=== PATIENT | female | born 1960 | race Two or more races ===

== ENCOUNTER → 2019-09-06 | Outpatient (CLI) | payer BC ==
[2019-09-06 12:20] LABS: Basophils # (auto) 0 10 ^3/uL (0-0.2); Basophils % (auto) 0.4 % (0.0-2.0); Eosinophils # (auto) 0.1 10 ^3/uL (0-0.8); Eosinophils % (auto) 1.3 % (0.0-7.0); Lymphocytes # (auto) 2.7 10 ^3/uL (0.4-5.4); Lymphocytes % (auto) 40.8 % (10.0-50.0); Mean Corpuscular Hemoglobin 27.6 pg (28.0-32.0); Mean Corpuscular Hgb Conc. 32.5 g/dL (32.0-36.0); Mean Corpuscular Volume 85.1 fL (80.0-100.0); Monocytes # (auto) 0.3 10 ^3/uL (0-1.3); Monocytes % (auto) 5.3 % (0.0-12.0); Neutrophils # (auto) 3.5 10 ^3/uL (1.6-8.6); Neutrophils % (auto) 52.2 % (37.0-80.0); Platelet Count (auto) 245 10^3/uL (140-450); Red Blood Cells 5.05 10^6/uL (4.0-5.20); Red Cell Distribution Width 14.4 % (11.8-14.3); White Blood Cell 6.6 10^3/uL (4.4-10.8)
[2019-09-06 12:41] LABS: Potassium 4.1 mmol/L (3.5-5.1)
[2019-09-06 13:09] LABS: Albumin 3.4 g/dL (3.4-5.0); BUN/Creatinine Ratio 18.9; Bilirubin, Total 1.1 mg/dL (0.2-1.0); Calcium 8.7 mg/dL (8.5-10.1); Total Protein 7.5 g/dL (6.4-8.2)
== END | disposition home or self-care (01) ==
LOC: LAB 10:57
PROVIDERS: ATTEND Internal Medicine Cardiovascular Disease
DX: Z00.00 Encounter for general adult medical examination without abnormal findings (principal); E66.3 Overweight; Z80.9 Family history of malignant neoplasm, unspecified
CPT/HCPCS: 36415; 80053; 80061; 85025

== ENCOUNTER → 2019-11-01 | Outpatient (CLI) | payer BC | END | disposition home or self-care (01) | LOC: Rad HDHVI 13:10 | PROVIDERS: ATTEND Internal Medicine Cardiovascular Disease | DX: I07.1 Rheumatic tricuspid insufficiency (principal); R06.02 Shortness of breath | CPT/HCPCS: 71046; 93306 ==

== ENCOUNTER → 2019-11-02 | Outpatient (CLI) | payer BC ==
[~2019-11-02] VITALS: Ht 162.6 cm; Wt 89.8 kg
== END | disposition home or self-care (01) ==
LOC: Rad HDHVI 08:06
PROVIDERS: ATTEND Internal Medicine Cardiovascular Disease
DX: I25.10 Atherosclerotic heart disease of native coronary artery without angina pectoris (principal); R06.02 Shortness of breath
CPT/HCPCS: 78452; 93017; 96374; A9500

== ENCOUNTER → 2020-02-20 | Outpatient (CLI) | payer OTHER | END | disposition home or self-care (01) | LOC: LAB 07:27 | PROVIDERS: ATTEND Nurse Practitioner Family | DX: U07.1 COVID-19 (principal) | CPT/HCPCS: C9803; U0003 ==

== ENCOUNTER → 2020-11-20 | Outpatient (CLI) | payer BC, OTHER ==
[2020-11-20 11:15] LABS: Basophils # (auto) 0 10 ^3/uL (0-0.2); Basophils % (auto) 0.6 % (0.0-2.0); Eosinophils # (auto) 0.1 10 ^3/uL (0-0.8); Eosinophils % (auto) 1.3 % (0.0-7.0); Hematocrit 43.4 % (36.0-46.0); Hemoglobin 14.4 g/dL (12.2-16.2); Lymphocytes # (auto) 2.2 10 ^3/uL (0.4-5.4); Lymphocytes % (auto) 38.4 % (10.0-50.0); Mean Corpuscular Hgb Conc. 33.3 g/dL (32.0-36.0); Mean Corpuscular Volume 84.1 fL (80.0-100.0); Monocytes # (auto) 0.3 10 ^3/uL (0-1.3); Monocytes % (auto) 5.5 % (0.0-12.0); Neutrophils # (auto) 3.1 10 ^3/uL (1.6-8.6); Neutrophils % (auto) 54.2 % (37.0-80.0); Red Blood Cells 5.16 10^6/uL (4.0-5.20); Red Cell Distribution Width 14.5 % (11.8-14.3); White Blood Cell 5.7 10^3/uL (4.4-10.8)
[2020-11-20 11:17] LABS: Urine Blood Negative /uL (Negative); Urine Specific Gravity 1.024 (1.001-1.035)
[2020-11-20 11:27] LABS: Albumin 3.3 g/dL (3.4-5.0); Calcium 9.3 mg/dL (8.5-10.1); Potassium 4.2 mmol/L (3.5-5.1)
[2020-11-20 11:32] LABS: BUN/Creatinine Ratio 21.2; Bilirubin, Direct 0.2 mg/dL (0-0.2); Total Protein 7.6 g/dL (6.4-8.2)
[2020-11-20 12:02] LABS: Follicle Stimulating Hormone 70.3 IU/L (SEE BELOW); Free T4 (Free Thyroxine) 1.03 ng/dL (0.89-1.76)
== END | disposition home or self-care (01) ==
LOC: LAB 10:31
PROVIDERS: ATTEND Internal Medicine Cardiovascular Disease
DX: Z00.00 Encounter for general adult medical examination without abnormal findings (principal); D51.3 Other dietary vitamin B12 deficiency anemia; I10 Essential (primary) hypertension; E11.9 Type 2 diabetes mellitus without complications; E55.9 Vitamin D deficiency, unspecified; D64.9 Anemia, unspecified; R00.2 Palpitations; R53.1 Weakness; R30.0 Dysuria
CPT/HCPCS: 36415; 80048; 80061; 80076; 81003; 82306; 82607; 82670; 82672; 83001; 83036; 84144; 84403; 84439; 84443; 85025

== ENCOUNTER → 2020-11-22 | Outpatient (CLI) | payer BC, OTHER | END | disposition home or self-care (01) | LOC: Rad HDHVI 14:37 | PROVIDERS: ATTEND Internal Medicine Cardiovascular Disease | DX: M47.817 Spondylosis without myelopathy or radiculopathy, lumbosacral region (principal); M51.37 Other intervertebral disc degeneration, lumbosacral region | CPT/HCPCS: 72100 ==

== ENCOUNTER → 2021-07-04 | Outpatient (CLI) | payer BC ==
[2021-07-04 11:53] LABS: Basophils # (auto) 0 10 ^3/uL (0-0.2); Basophils % (auto) 0.2 % (0.0-2.0); Eosinophils # (auto) 0.1 10 ^3/uL (0-0.8); Eosinophils % (auto) 2.1 % (0.0-7.0); Hematocrit 43.1 % (36.0-46.0); Hemoglobin 14.4 g/dL (12.2-16.2); Lymphocytes # (auto) 2.2 10 ^3/uL (0.4-5.4); Lymphocytes % (auto) 35.6 % (10.0-50.0); Mean Corpuscular Hemoglobin 27.9 pg (28.0-32.0); Mean Corpuscular Hgb Conc. 33.4 g/dL (32.0-36.0); Mean Corpuscular Volume 83.5 fL (80.0-100.0); Monocytes # (auto) 0.4 10 ^3/uL (0-1.3); Monocytes % (auto) 6.1 % (0.0-12.0); Neutrophils # (auto) 3.5 10 ^3/uL (1.6-8.6); Nucleated Red Blood Cells % 0.1 %; Red Blood Cells 5.16 10^6/uL (4.0-5.20); Red Cell Distribution Width 14.1 % (11.8-14.3); White Blood Cell 6.2 10^3/uL (4.4-10.8)
[2021-07-04 12:08] LABS: Potassium 4.1 mmol/L (3.5-5.1)
[2021-07-04 12:15] LABS: Albumin 3.3 g/dL (3.4-5.0); BUN/Creatinine Ratio 19.2; Bilirubin, Total 0.8 mg/dL (0.2-1.0); Calcium 8.9 mg/dL (8.5-10.1); Total Protein 7.4 g/dL (6.4-8.2)
== END | disposition home or self-care (01) ==
LOC: LAB 08:17
PROVIDERS: ATTEND Internal Medicine Cardiovascular Disease
DX: Z00.00 Encounter for general adult medical examination without abnormal findings (principal); E55.9 Vitamin D deficiency, unspecified; R73.03 Prediabetes; R79.89 Other specified abnormal findings of blood chemistry
CPT/HCPCS: 36415; 80053; 80061; 82043; 82306; 83036; 84439; 84443; 85025

== ENCOUNTER 2022-07-01 08:07 | Day surgery (SDC) | payer BC ==
[2022-05-29 14:19] LABS: Basophils # (auto) 0 10 ^3/uL (0-0.2); Basophils % (auto) 0.4 % (0.0-2.0); Eosinophils # (auto) 0.1 10 ^3/uL (0-0.8); Eosinophils % (auto) 1.8 % (0.0-7.0); Hematocrit 43.4 % (36.0-46.0); Hemoglobin 14.6 g/dL (12.2-16.2); Lymphocytes # (auto) 2.7 10 ^3/uL (0.4-5.4); Lymphocytes % (auto) 37.6 % (10.0-50.0); Mean Corpuscular Hemoglobin 28.1 pg (28.0-32.0); Mean Corpuscular Hgb Conc. 33.5 g/dL (32.0-36.0); Mean Corpuscular Volume 83.9 fL (80.0-100.0); Monocytes # (auto) 0.4 10 ^3/uL (0-1.3); Monocytes % (auto) 5.2 % (0.0-12.0); Neutrophils # (auto) 3.9 10 ^3/uL (1.6-8.6); Nucleated Red Blood Cells % 0.1 %; Red Blood Cells 5.18 10^6/uL (4.0-5.20); Red Cell Distribution Width 14.3 % (11.8-14.3); White Blood Cell 7.1 10^3/uL (4.4-10.8)
[2022-05-29 14:31] LABS: Urine Bacteria NONE SEEN /hpf (None Seen); Urine Blood Negative /uL (Negative); Urine Hyaline Cast FEW /lpf (0 - 2); Urine Mucus FEW (None Seen); Urine Specific Gravity 1.025 (1.001-1.035); Urine WBC 1 /hpf (0 - 5)
[2022-05-29 14:36] LABS: INR 1.01 (0.9-1.15); Partial Thromboplastin Time 30.1 sec (24.6-33.4)
[2022-05-29 15:04] LABS: Albumin 3.8 g/dL (3.4-5.0); BUN/Creatinine Ratio 17.6; Calcium 8.9 mg/dL (8.5-10.1); Potassium 3.7 mmol/L (3.5-5.1); Total Protein 7.4 g/dL (6.4-8.2)
[2022-06-29 15:00] LABS: Basophils # (auto) 0.1 10 ^3/uL (0-0.2); Basophils % (auto) 0.7 % (0.0-2.0); Eosinophils # (auto) 0.2 10 ^3/uL (0-0.8); Eosinophils % (auto) 2.1 % (0.0-7.0); Hemoglobin 14.5 g/dL (12.2-16.2); Lymphocytes # (auto) 2.5 10 ^3/uL (0.4-5.4); Mean Corpuscular Hemoglobin 27.3 pg (28.0-32.0); Mean Corpuscular Hgb Conc. 32.3 g/dL (32.0-36.0); Mean Corpuscular Volume 84.5 fL (80.0-100.0); Monocytes # (auto) 0.5 10 ^3/uL (0-1.3); Monocytes % (auto) 6.4 % (0.0-12.0); Neutrophils # (auto) 4.5 10 ^3/uL (1.6-8.6); Neutrophils % (auto) 58.8 % (37.0-80.0); Nucleated Red Blood Cells % 0.1 %; Red Blood Cells 5.32 10^6/uL (4.0-5.20); Red Cell Distribution Width 14.8 % (11.8-14.3); White Blood Cell 7.7 10^3/uL (4.4-10.8)
[2022-06-29 15:21] LABS: INR 0.97 (0.9-1.15); Partial Thromboplastin Time 28.8 sec (24.6-33.4)
[2022-06-29 15:34] LABS: Urine Bacteria FEW /hpf (None Seen); Urine Blood Negative /uL (Negative); Urine Hyaline Cast FEW /lpf (0 - 2); Urine Mucus FEW (None Seen); Urine Specific Gravity 1.025 (1.001-1.035); Urine WBC 1 /hpf (0 - 5)
[2022-06-29 15:53] LABS: Albumin 3.4 g/dL (3.4-5.0); Potassium 3.9 mmol/L (3.5-5.1)
[2022-06-29 15:58] LABS: Bilirubin, Total 1.1 mg/dL (0.2-1.0); Total Protein 7.2 g/dL (6.4-8.2)
[~2022-07-01] VITALS: Ht 162.6 cm; Wt 88.9 kg
[~2022-07-01 08:07] MED LIST: SEMA0.5I SC
[2022-07-01] MEDS ORDERED: ceFAZolin 1GM/50ML 100 ML IV ONE (08:38)
[2022-07-01] MEDS ORDERED: MIDAZOLAM HCL 2MG/2ML 2ml VIAL (1mg/ml) ONE (09:04)
[2022-07-01] MEDS ORDERED: ONDANSETRON HCL 4 MG/2 ML VIAL ONE (09:04)
[2022-07-01] MEDS ORDERED: PROPOFOL 10 MG/ML 20 ML IV ONE (09:04)
[2022-07-01] MEDS ORDERED: SODIUM CHLORIDE LOCK 10 ML ONE (09:04)
[2022-07-01] MEDS ORDERED: fentaNYL CITRATE 100 MCG/2 ML VL ONE (09:04)
[2022-07-01] MEDS ORDERED: METOCLOPRAMIDE HCL 5MG/ml INJ 2ml VIAL IV PRN (09:30)
[2022-07-01] MEDS ORDERED: MORPHINE SULFATE INJ 2 MG/ml SYRG IV PRN (09:30)
[2022-07-01] MEDS ORDERED: HYDROmorphone HCL 2 MG/ML VL/or syr IV PRN ×2 (09:30)
[2022-07-01 12:35] VITALS: BP 117/52
== END 2022-07-01 12:50 | disposition home or self-care (01) ==
LOC: SUR 08:07
PROVIDERS: ATTEND Podiatrist
DX: M20.42 Other hammer toe(s) (acquired), left foot (principal); M20.12 Hallux valgus (acquired), left foot; Z20.822 Contact with and (suspected) exposure to COVID-19; Z98.890 Other specified postprocedural states
CPT/HCPCS: 28285; 28298; 36415; 73620; 76000; 80053; 81001; 85025; 85610; 85730; J0690; J2250; J2405; J2704; J3010; U0003

== ENCOUNTER → 2024-02-17 | Outpatient (CLI) | payer BC, MEDICAID ==
--- NOTE | 2024-02-17 09:21 | DVHSR ---
APPROVED REPORT EXAM: Two-dimensional and M-mode echocardiogram with Doppler and color Doppler. INDICATION Chest Pain RISK FACTORS Height: 64, Weight: 200 DIMENSIONS LVDd5.2 (3.8-5.7cm)LA (2D)4.2 (1.9-4.0cm)Aortic Root3.2 (2.0-3.7cm) LVDs3.9 (2.5-4.0cm)LA (MM) (1.9-4.0cm)Aortic Cusp Exc1.8 (1.5-2.0cm) EF (%) 50.0 (55-70%)Rt. Atrium4.4 (1.9-4.0cm)Asc. Aorta cm Mitral Valve MitralMitral Stenosis E wave0.60m/sMV Mean GR.mmHg A wave1.00m/sMV Peak GR.mmHg E/A ratio0.62D MVAcm2 DECEL [id number] 1/2 [id number] IVRTmsDop MVA3.65cm2 Aortic Valve Aortic ValveAortic Stenosis V10.88m/Asmita Mean GR.3mmHg V21.22m/Asmita Peak GR.6mmHg LVOT Diameter2.0 (1.8-2.4cm)Doppler AVA2.26cm2 Pulmonic Valve V20.81m/s Other Information Technically limited study due to body habitus. Conclusion Mildly reduced left ventricular systolic function in global fashion estimated ejection fraction 45%. There is a grade diastolic dysfunction. Normal right ventricular size and dimension. Normal right ventricular systolic function. Normal biatrial size and dimension. Normal aortic valve structure and function. Normal mitral valve structure and function. Normal tricuspid valve structure and function. The pulmonary valve is grossly normal. No pericardial effusion.
== END | disposition home or self-care (01) ==
LOC: EEVIPCON → XYW 07:55
PROVIDERS: ATTEND Nurse Practitioner Family
DX: R06.02 Shortness of breath (principal); R42 Dizziness and giddiness; R07.9 Chest pain, unspecified
CPT/HCPCS: 93306

== ENCOUNTER → 2024-06-13 | Outpatient (CLI) | payer MEDICAID ==
[~2024-06-13] VITALS: Ht 162.6 cm; Wt 92.5 kg
--- NOTE | 2024-06-16 14:58 | DVHSR ---
APPROVED REPORT Exam: Nuclear Stress Test Indication: Chest pain Ht: 5 ft 4 in Wt: 204 lbs BSA: 1.97 m2 HR: 63 bpm BP: 111/75 mmHg BMI: 35.01 Rhythm: NSR Medical History Medical History: Chest pain Allergies: No known drug allergies Cardiac Risk Factors: Family Hx of CAD Stress Test Details Stress Test: Exercise stress testing was performed using a Benny protocol. HR Resting HR: 63 bpmMax Heart Rate (APMHR): 159.231269 bpm Max HR Achieved: 151 bpmTarget HR (85% APMHR): 135.884768 bpm % of APMHR: 94.97 Recovery HR: 84 bpm HR response to stress: Accelerated BP Resting BP: 111/75 mmHg Max BP: 187/62 mmHg Recovery BP: 132/68 mmHg BP response to stress: Exaggerated response ECG Resting ECG: Sinus Rhythm Stress ECG: Sinus Tachycardia Arrhythmia: PVCs, PACs Recovery ECG: Sinus Rhythm Clinical Reason for Termination: Dyspnea, Target HR achieved Stress Symptoms: Dyspnea Exercise duration: 4 min 25 sec Exercise capacity: 7.0 METs SOB (89-91% R/A peak exercise); improved during recovery, 96% R/A resting. Stress ECG Conclusion NON ISCHEMIC CLINICAL RESPONSE NON ISCHEMIC ECG RESPONSE NO REVERSIBLE DEFECTS CARDIOLITE STRESS IMAGING EF >50% NM EXAM: Myocardial Perfusion REST/STRESS Imaging Protocol: Rest Tc-99m/Stress Tc-99m 1 day Resting Data Rest SPECT myocardial perfusion imaging was performed in supine position 30 minutes following the int ravenous injection of 9.75 mCi of Tc-99m Sestamibi. Time of rest injection: 1008 Time of rest imagin Administration Route: IV Administration Site: Left AC Exercise Stress At peak stress, the patient was injected intravenously with 31.9 mCi of Tc-99m Sestamibi. Time of stress injection: 1103 Time of stress imagin Administration Route: IV Administration Site: Left AC Heart Rate at time of stress injection: 151 bpm. Patient continued to exercise for 1 minute(s). Gated Stress SPECT was performed 15 minutes after stress injection. The images were gated to evaluate regional wall motion and calculate left ventricular ejection fracti on. Comments Cardiolite injection at 3 minutes, 10 seconds into test. Study Data Post stress, the left ventricular ejection was 46%.. Nuclear Conclusion NON ISCHEMIC CLINICAL RESPONSE NON ISCHEMIC ECG RESPONSE NO REVERSIBLE DEFECTS CARDIOLITE STRESS IMAGING EF >50%
== END | disposition home or self-care (01) ==
LOC: Rad HDHVI 10:45
PROVIDERS: ATTEND Internal Medicine Cardiovascular Disease
DX: R00.0 Tachycardia, unspecified (principal); R07.9 Chest pain, unspecified; R06.00 Dyspnea, unspecified
CPT/HCPCS: 78452; 93017; A9500; 96374

== ENCOUNTER → 2024-06-14 | Outpatient (CLI) | payer MEDICAID ==
--- NOTE | 2024-06-16 13:46 | DVHSR ---
APPROVED REPORT EXAM: Two-dimensional and M-mode echocardiogram with Doppler and color Doppler. DIMENSIONS LVDd4.4 (3.8-5.7cm)LA (2D)3.8 (1.9-4.0cm)Aortic Root3.2 (2.0-3.7cm) LVDs3.3 (2.5-4.0cm)LA (MM) (1.9-4.0cm)Aortic Cusp Exc1.9 (1.5-2.0cm) EF (%) 50.0 (55-70%)Rt. Atrium3.7 (1.9-4.0cm)Asc. Aorta cm IVSd0.9 (0.7-1.1cm)RV (D) (1.8-2.4cm) PWd1.0 (0.7-1.1cm) Mitral Valve MitralMitral Stenosis E wave0.56m/sMV Mean GR.mmHg A wave0.73m/sMV Peak GR.mmHg E/A ratio0.82D MVAcm2 DECEL [id number] 1/2 Timems Aortic Valve Aortic ValveAortic Stenosis V10.80m/Asmita Mean GR.3mmHg V21.13m/Asmita Peak GR.5mmHg LVOT Diameter2.2 (1.8-2.4cm)Doppler AVA2.69cm2 Pulmonic Valve V20.95m/s LEFT VENTRICLE The left ventricle is normal size. The left ventricle is normal in structure and function. The Ejection Fraction is 45-50%. RIGHT VENTRICLE The right ventricle is normal size. ATRIA The left atrial size is normal. The right atrium size is normal. The interatrial septum is intact with no evidence for an atrial septal defect. MITRAL VALVE The mitral valve is normal in structure. Mitral regurgitation is trace. PULMONIC VALVE The pulmonic valve is not well visualized. TRICUSPID VALVE The tricuspid valve is grossly normal. AORTIC VALVE The aortic valve opens well. No aortic regurgitation is present. GREAT VESSELS The aortic root is normal size. PERICARDIAL EFFUSION There is no pericardial effusion. Other Information Technically limited study due to body habitus. Conclusion EF 50-55%
== END | disposition home or self-care (01) ==
LOC: Rad HDHVI 08:03
PROVIDERS: ATTEND Internal Medicine Cardiovascular Disease
DX: R06.02 Shortness of breath (principal)
CPT/HCPCS: 93306

== ENCOUNTER → 2024-10-04 | Outpatient (CLI) | payer MEDICAID ==
[~2024-10-04] VITALS: Ht 30.5 cm; Wt 0.5 kg
[~2024-10-04] MED LIST changes: +KETOROLAC TROMETH 30 MG/ML 1ML VIAL IV ONE; +ONDANSETRON HCL 4 MG/2 ML VIAL IV ONE; +TRAM-626 PO; +ZOFR4T PO
[2024-10-04 10:30] VITALS: BP 145/58; PULSE 61; RESP 20; O2SAT 96
[2024-10-04] MEDS: KETOROLAC TROMETH 60MG/2ML VIAL IM ONE (10:45)
[2024-10-04] MEDS: SODIUM CHLORIDE 0.9% 1,000 ML IV ONE (10:48)
[2024-10-04] MEDS: ONDANSETRON HCL 4 MG/2 ML VIAL ONE ×2 (11:14→12:44)
[2024-10-04] MEDS: KETOROLAC TROMETH 60MG/2ML VIAL ONE (11:14)
[2024-10-04] MEDS: PANTOPRAZOLE 40 MG TAB PO ONE ×2 (11:54→11:55)
--- NOTE | 2024-10-04 13:00 | DVH ---
Exam: XY KUB ABDOMEN SINGLE VIEW Indication: ABD PAIN Comparison: None Technique: 2 radiographic views of the abdomen. Findings: Moderate colonic stool. Nonobstructive bowel gas pattern noted. There is no definite evidence for pneumoperitoneum. No abnormal calcifications noted. Impression: Moderate colonic stool.
[2024-10-04] MEDS: ONDANSETRON HCL 4 MG/2 ML VIAL IV ONE (14:05)
[2024-10-04 14:12] VITALS: BP 150/69; PULSE 64; RESP 16; O2SAT 96
== END | disposition home or self-care (01) ==
LOC: CHF HDHVI 10:39
PROVIDERS: ATTEND Internal Medicine Cardiovascular Disease
DX: K29.70 Gastritis, unspecified, without bleeding (principal); E86.0 Dehydration; R11.0 Nausea; R10.9 Unspecified abdominal pain
CPT/HCPCS: 74018; 96361; 96365; 96372; 96375; G0463; J1885; J1956; J2405; J7030; 96360; 96367

== ENCOUNTER 2024-10-05 21:27 | Inpatient (IN) | payer MEDICAID ==
[~2024-10-05] VITALS: Ht 162.6 cm; Wt 93.1 kg
[~2024-10-05 21:27] MED LIST changes: -KETOROLAC TROMETH 30 MG/ML 1ML VIAL IV ONE; -ONDANSETRON HCL 4 MG/2 ML VIAL IV ONE; -TRAM-626 PO; -ZOFR4T PO
--- NOTE | 2024-10-05 22:22 | ED.PDOC ---
GI ASSESSMENT HPI Comments 63-year-old female with a history of cholecystectomy brought in by self complaining of upper abdominal pain for the last 5 days. Patient reports upper abdominal pain radiating to the back, severe, associated with nausea, vomiting and decreased p.o. intake. Patient states her last bowel movement was 5 days ago. Patient states she was seen by her PCP 2 days ago, was diagnosed with a "stomach infection" and gastritis and was started on levofloxacin, esomeprazole and tramadol. Patient reports no improvement in her symptoms. Chief Complaint: Abdominal Pain Time Seen by MD: 22:20 Reviewed Notes: Nurses Notes Allergies: Coded Allergies: No Known Drug Allergy (Verified Allergy, Unknown, 11/02/19) Home Meds Reported Medications Semaglutide (Wegovy) 0.5 Mg/0.5 Ml Inj, 0.5 MG SC QWEEKLY, INJ 05/29/22 Information Source: Patient Mode of Arrival: Ambulatory Timing: Days Duration: Intermittent Prehospital treatment: None Quality: Burning Vomitus: Watery Stool: Impaction Severity: Moderate Recent: None Recent Hx of: Abdominal Surgery Pain Location: RUQ, LUQ Modifying Factors: Nothing Associated sign and symptoms: Nausea, Vomiting, Constipation, Abdominal Pain, Other (Back pain) Past Medical History PAST MEDICAL HISTORY: Denies Surgical History: Cholecystectomy [employer]ANCE [employer]ENT History: Denies all [employer]URANCE [employer]ENT Hx Family History Family History: Reviewed,noncontributory to illness Social History Smoker: Non-Smoker Alcohol: Denies ETOH Use Drugs: Denies Drug Use Lives In: Home Constitutional: denies: chills, diaphoresis, fatigue, fever, malaise, sweats, weakness, others EENTM: denies: blurred vision, double vision, ear bleeding, ear discharge, ear drainage, ear pain, ear ringing, eye pain, eye redness, hearing loss, mouth pain, mouth swelling, nasal discharge, nose bleeding, nose congestion, nose pain, photophobia, tearing, throat pain, throat swelling, voice changes, others Respiratory: denies: cough, hemoptysis, orthopnea, SOB at rest, shortness of breath, SOB with excertion, stridor, wheezing, others Cardiovascular: denies: chest pain, dizzy spells, diaphoresis, Dyspnea on exertion, edema, irregular heart beat, left arm pain, lightheadedness, palpitations, PND, syncope, others Gastrointestinal: reports: abdominal pain, constipated, nausea, vomiting; denies: abdomen distended, blood streaked bowels, diarrhea, dysphagia, difficulty swallowing, hematemesis, melena, poor appetite, poor fluid intake, rectal bleeding, rectal pain, others Genitourinary: denies: abnormal vagina bleeding, burning, dyspareunia, dysuria, flank pain, frequency, hematuria, incontinence, pain, , vagina discharge, urgency, others Neurological: denies: dizziness, fainting, headache, left sided numbness, left sided weakness, numbness, paresthesia, pre-existing deficit, right sided numbness, right sided weakness, seizure, speech problems, tingling, tremors, weakness, others Musculoskeletal: reports: back pain; denies: gout, joint pain, joint swelling, muscle pain, muscle stiffness, neck pain, others Integumetry: denies: bruises, change in color, change in hair/nails, dryness, laceration, lesions, lumps, rash, wounds, others Allergic/Immunocompromised: denies: Difficulty Healing, Frequent Infections, Hives, Itching, others Hematologic/Lymphatic: denies: anemia, blood clots, easy bleeding, easy bruising, swollen glands, others Endocrine: denies: excessive hunger, excessive sweating, excessive thirst, excessive urination, flushing, intolerance to cold, intolerance to heat, unexplained weight gain, unexplained weight loss, others Psychiatric: denies: anxiety, bipolar disorder, depression, hopeless, panic disorder, schizophrenia, sleepless, suicidal, others Physical Exam General Appearance: Mild Distress HEENT: Other (Pupils and face symmetric. Moist mucous membranes.) Neck: Full Range of Motion, Normal Inspection Respiratory: Lungs Clear, No Accessory Muscle Use, No Respiratory Distress, Normal Breath Sounds Cardiovascular: No Edema, No JVD, Regular Rate/Rhythm Breast Exam: Deferred Gastrointestinal: Epigastric, LUQ, RUQ, Tenderness Genitalia: Deferred Pelvic: Deferred Rectal: Deferred Extremities: Normal inspection, Normal range of motion, Non-tender, No pedal edema Neurologic: Alert (Oriented x4), Normal Affect, Normal Mood, Other (Ambulatory) Cerebellar Function: NOT DONE Reflexes: NOT DONE Skin: Dry, Normal Color, Warm Lymphatic: NOT DONE Was a procedure done? Was a procedure done?: No GI differential Dx Differential Diagnosis: Constipation, Gastritis/PUD, Gastroenteritis, Inflam matory BD, Pancreatitis, UTI, Dehydration, Diabetes/ DKA, Electrolyte Imbalance, Food Poisoning, Bacterial, Viral, Hypovolemia, Impaction, Stress Ulcer X-Ray, Labs, Meds, VS Vital Signs Date Time Temp Pulse Resp B/P (MAP) Pulse Ox O2 Delivery O2 Flow Rate FiO2 10/06/24 00:01 98.3 85 14 120/60 (80) 96 98.3 10/05/24 22:13 98.5 82 20 133/70 (91) 98 98.5 Lab Test 10/06/24 01:05 10/06/24 00:09 10/05/24 22:25 10/05/24 22:01 Range/Units Troponin I High Sensitivity Pending 6 7 </=34 ng/L White Blood Count 9.3 4.4-10.8 10^3/uL Red Blood Count 5.68 H 4.0-5.20 10^6/uL Hemoglobin 16.0 12.2-16.2 g/dL Hematocrit 47.1 H 36.0-46.0 % Mean Corpuscular Volume 82.9 80.0-100.0 fL Mean Corpuscular Hemoglobin 28.1 28.0-32.0 pg Mean Corpuscular Hemoglobin Concent 33.9 32.0-36.0 g/dL Red Cell Distribution Width 14.1 11.8-14.3 % Platelet Count 258 140-450 10^3/uL Mean Platelet Volume 8.1 6.9-10.8 fL Neutrophils (%) (Auto) 69.7 37.0-80.0 % Lymphocytes (%) (Auto) 21.0 10.0-50.0 % Monocytes (%) (Auto) 8.4 0.0-12.0 % Eosinophils (%) (Auto) 0.5 0.0-7.0 % Basophils (%) (Auto) 0.4 0.0-2.0 % Neutrophils # (Auto) 6.5 1.6-8.6 10 ^3/uL Lymphocytes # (Auto) 1.9 0.4-5.4 10 ^3/uL Monocytes # (Auto) 0.8 0-1.3 10 ^3/uL Eosinophils # (Auto) 0 0-0.8 10 ^3/uL Basophils # (Auto) 0 0-0.2 10 ^3/uL Nucleated Red Blood Cells 0.1 % Sodium Level 132 L 136-145 mmol/L Potassium Level 3.6 3.5-5.1 mmol/L Chloride Level 96 L 98-107 mmol/L Carbon Dioxide Level 28 20-31 mmol/L Anion Gap 8 5-15 Blood Urea Nitrogen 13 9-23 mg/dL Creatinine 0.85 0.550-1.02 mg/dL Glomerular Filtration Rate Calc 78 >90 mL/min BUN/Creatinine Ratio 15.3 10.0-20.0 Serum Glucose 127 H 74-106 mg/dL Calcium Level 9.6 8.7-10.4 mg/dL Total Bilirubin 1.7 H 0.2-1.0 mg/dL Aspartate Amino Transferase (AST) 20 13-40 U/L Alanine Aminotransferase (ALT) 19 7-40 U/L Alkaline Phosphatase 102 46-116 U/L Total Protein 7.8 5.7-8.2 g/dL Albumin 4.7 3.2-4.8 g/dL Lipase 39 12-53 U/L Urine Color Yellow Yellow Urine Clarity Clear Clear Urine pH 6.5 5.0-9.0 Urine Specific [place] 1.026 1.001-1.035 Urine Protein Trace H Negative Urine Ketones 1+ H Negative Urine Blood Trace H Negative /uL Urine Nitrite Negative Negative Urine Bilirubin Negative Negative Urine Urobilinogen Normal Negative mg/dL Urine Leukocyte Esterase Trace Negative /uL Urine RBC 5 0 - 4 /hpf Urine Microscopic WBC 5 0-5 /HPF Urine Squamous Epithelial Cells Few <5 /hpf Urine Bacteria None seen None Seen /hpf Urine Mucus Few None Seen Urine Glucose Normal Normal mg/dL PROCEDURE(s): ABPL - CT AB PEL WO CON-NO ORAL OR IV REASON: epig and luq pain ORDER NUMBER(s): [id number], ACCESSION NUMBER(s): [id number] CLINICAL HISTORY: epig and luq pain TECHNIQUE: CT of the abdomen and pelvis was performed without intravenous contrast. This exam was performed according to our departmental dose optimization program. Up-to-date CT equipment and radiation dose reduction techniques are utilized as appropriate. CTDI: 17.33 DLP: 1043.08 WID: COMPARISON: None FINDINGS: Lower Thorax: Unremarkable. Liver and Biliary system: Normal-sized liver. tiny hypodensities in the right lobe of the liver not optimally evaluated without contrast. Gallbladder surgically absent. No biliary ductal dilatation. Spleen: Unremarkable. Adrenal Glands and Kidneys: Unremarkable. Pancreas and Retroperitoneum: Unremarkable. Aorta and Major Vessels: Aortoiliac vessels are normal in caliber with mild calcified atherosclerotic plaque. Bowel, Mesentery and Peritoneal space: Normal caliber small and large bowel. There is mild colonic diverticulosis. Normal appendix. There is no free air or fluid collection. Pelvis: Unremarkable. Abdominal wall and Osseous Structures: Small fat containing umbilical hernia. Mild multilevel lower thoracic and lumbar spondylosis. No destructive osseous lesion. IMPRESSION: No noncontrast evidence of acute abnormality. Mild distal colonic diverticulosis. X-Ray, Labs, Meds, VS Comment 63-year-old female with a history of cholecystectomy complaining of upper abdominal pain despite taking oral antibiotics, tramadol and as omeprazole. Vitals unremarkable Exam remarkable for epigastric and left greater than right upper quadrant tenderness to palpation Rhythm strip independently interpreted by me: Sinus rhythm, rate 82, no ectopy. CT abdomen and pelvis: IMPRESSION: No noncontrast evidence of acute abnormality. Mild distal colonic diverticulosis. CBC unremarkable, CMP remarkable for sodium 132, chloride 96, total bili 1.7, li pase normal, 2 troponins negative, UA positive for blood, ketones, protein, leukocyte esterase, WBCs and RBCs, possibly indicating a partially treated urinary tract infection (patient is on Levaquin for the last 2 days) Patient treated with the following in the ED: 1 L 0.9 normal saline IV bolus, morphine 4 mg IV, Zofran 4 mg IV, Protonix 40 mg IV, Rocephin 1 g IV On re-evaluation, patient states pain has improved. Vitals are stable. Plan is to admit the patient for GI evaluation and IV antibiotics to cover possible partially treated UTI. Time of 1ST Reevaluation: 22:14 Reevaluation 1ST: Unchanged Patient Education/Counseling: Diagnosis, Treatment Family Education/Counseling: No Family Present SEPSIS Sepsis Screen Physician Orders Ct Ab Pel Wo Con-No Oral Or Iv (10/05/24 22:15) Electrocardigram (10/05/24 22:15) Troponin-I Hs (10/06/24 01:15) Vital Signs Date Time Temp Pulse Resp B/P (MAP) Pulse Ox O2 Delivery O2 Flow Rate FiO2 10/06/24 00:01 98.3 85 14 120/60 (80) 96 98.3 10/05/24 22:13 98.5 82 20 133/70 (91) 98 98.5 Laboratory Tests Test 10/05/24 22:25 White Blood Count 9.3 10^3/uL (4.4-10.8) Departure 1 Departure Time of Disposition: 01:34 Impression: Primary Impression: Abdominal pain Additional Impression: UTI (urinary tract infection) Disposition: 09 ADMITTED INPATIENT Admit to: Med Surg Condition: Guarded Critical Care Note Critical Care Time?: No Stability Stability form required: No Heart Score Heart Score: Heart Score Response (Comments) Value History N/A 0 EKG N/A 0 Age N/A 0 Risk Factors N/A 0 Troponin N/A 0 Total 0 I personally scribed for LIBRADO MARK MD (RIOSAMSON) on 10/05/24 at 22:22. Electronically submitted by Dre Orourke ([facility]). I personally scribed for LIBRADO MARK MD (RIOSAMSON) on 10/06/24 at 00:27. Electronically submitted by Dre Orourke ([facility]). I personally scribed for LIBRADO MARK MD (RIOSAMSON) on 10/06/24 at 01:10. Electronically submitted by Dre Orourke ([facility]). LIBRADO MARK MD Oct 05, 2024 22:22
[2024-10-05 22:38] LABS: Hematocrit 47.1 % (36.0-46.0); Hemoglobin 16.0 g/dL (12.2-16.2); Mean Corpuscular Hemoglobin 28.1 pg (28.0-32.0); Mean Corpuscular Volume 82.9 fL (80.0-100.0); Nucleated Red Blood Cells % 0.1 %
[2024-10-05 22:56] LABS: Alanine Aminotransferase 19 U/L (7-40); Albumin 4.7 g/dL (3.2-4.8); Alkaline Phosphatase 102 U/L (46-116); Anion Gap 8 (5-15); BUN/Creatinine Ratio 15.3 (10.0-20.0); Blood Urea Nitrogen 13 mg/dL (9-23); Calcium 9.6 mg/dL (8.7-10.4); Carbon Dioxide 28 mmol/L (20-31); Lipase 39 U/L (12-53); Potassium 3.6 mmol/L (3.5-5.1); Total Protein 7.8 g/dL (5.7-8.2)
[2024-10-05 23:03] LABS: Bilirubin, Total 1.7 mg/dL (0.2-1.0); Chloride 96 mmol/L (98-107); Glucose 127 mg/dL (74-106); Sodium 132 mmol/L (136-145)
[2024-10-05 23:07] LABS: Urine Protein, UAD TRACE (Negative)
[2024-10-06] VITALS (11 sets, daily range): BP systolic 107–129; BP diastolic 62–83; PULSE 59–89; RESP 12–20; TEMP 97.4–98.4; O2SAT 93–97
--- NOTE | 2024-10-06 00:15 | DVH ---
CLINICAL HISTORY: epig and luq pain TECHNIQUE: CT of the abdomen and pelvis was performed without intravenous contrast. This exam was per formed according to our departmental dose optimization program. Up-to-date CT equipment and radiation dose reduction techniques are utilized as appropriate. CTDI: 17.33 DLP: 1043.08 WID: COMPARISON: None FINDINGS: Lower Thorax: Unremarkable. Liver and Biliary system: Normal-sized liver. tiny hypodensities in the right lobe of the liver not optimally evaluated without contrast. Gallbladder surgically absent. No biliary ductal dilatation. Spleen: Unremarkable. Adrenal Glands and Kidneys: Unremarkable. Pancreas and Retroperitoneum: Unremarkable. Aorta and Major Vessels: Aortoiliac vessels are normal in caliber with mild calcified atherosclerotic plaque. Bowel, Mesentery and Peritoneal space: Normal caliber small and large bowel. There is mild colonic di verticulosis. Normal appendix. There is no free air or fluid collection. Pelvis: Unremarkable. Abdominal wall and Osseous Structures: Small fat containing umbilical hernia. Mild multilevel lower t horacic and lumbar spondylosis. No destructive osseous lesion. IMPRESSION: No noncontrast evidence of acute abnormality. Mild distal colonic diverticulosis.
[2024-10-06] MEDS ORDERED: ONDANSETRON HCL 4 MG/2 ML VIAL IV PRN (01:45)
[2024-10-06] MEDS ORDERED: ACETAMINOPHEN 325 MG TAB PO PRN (01:45)
--- NOTE | 2024-10-06 02:27 | DVHHP2 ---
History of Present Illness Reason for Visit: Abdominal pain History of Present Illness The patient is a 63-year-old female with past medical of cholecystitis who presented to [facility] ED with complaint of upper abdominal pain for the past 5 days. Patient reports she has been experiencing upper abdominal pain, radiating to her back, severe in nature, associated with nausea, vomiting, poor appetite, constipation, getting worse today that prompted this visit. Patient was seen and evaluated in the ED, laboratory data shows WBC 9.3, platelets 258, sodium 132, potassium 3.6, BUN 13, creatinine 0.85, glucose 127, calcium 9.6, lipase 39, total bilirubin 1.7, troponin 7, blood pressure 120/60, heart rate 85, temperature 98.3 F, O2 saturation 96% on room air. Abdomen/pelvis CT showed mild distal colonic diverticulosis, no evidence of acute abnormality. Please see medication orders section in the computer. On my assessment, patient denied chest pain, no headache, no dizziness, no diaphoresis, no shortness of breaths, no nausea, no vomiting at this moment, no fever, no chills. Patient was admitted for further evaluation and medical management. Past Medical History Cholecystitis Past Surgical History Cholecystectomy Family History Reviewed, noncontributory to the management of this case. Past Social History The patient lives at home, denies smoking, alcohol or illicit drugs abuse. Review of Systems Constitutional: No: Fever, Chills, Sweats, Weakness, Malaise, Other Eyes: No: Pain, Vision change, Conjunctivae inflammation, Eyelid inflammation, Other, Redness ENT: No: Ear pain, Ear discharge, Nose pain, Nose discharge, Nose congestion, Mouth pain, Mouth swelling, Throat pain, Throat swelling, Other Respiratory: No: Cough, Dry, Shortness of breath, SOB with excertion, Wheezing, Hemoptysis, Pleuritic Pain, Sputum, Wheezing, Other Cardiovascular: No: Chest Pain, Palpitations, Orthopnea, Paroxysmal Noc. Dyspnea, Edema, Lt Headedness, Other Gastrointestinal: Nausea, Vomiting, Abdominal Pain, Constipation; No: Diarrhea, Melena, Hematochezia, Other Genitourinary: No Dysuria, No Frequency, No Incontinence, No Hematuria, No Retention, No Other Musculoskeletal: back pain; No: other, neck pain, shoulder pain, arm pain, hand pain, leg pain, foot pain Skin: No: Rash, Lesions, Jaundice, Bruising, Other Neurological: No: Weakness, Numbness, Incoordination, Change in speech, Confusion, Seizures, Other Allergies: Coded Allergies: No Known Drug Allergy (Verified Allergy, Unknown, 11/02/19) Medications Current Medications Medications Dose Ordered Sig/Vinh Route Start Time Stop Time Status Last Admin Dose Admin Ceftriaxone Sodium 50 ml @ 100 mls/hr DAILY@09 IV 10/07/24 02:00 Sodium Chloride 1,000 ml @ 60 mls/hr [id number] IV 10/06/24 01:45 Acetaminophen/ Hydrocodone Bitart 1 tab Q4HP PRN PO 10/06/24 01:45 Ondansetron HCl 4 mg Q4HP PRN IV 10/06/24 01:45 Acetaminophen 650 mg Q6HP PRN PO 10/06/24 01:45 Morphine Sulfate 2 mg Q4HPRN PRN IV 10/06/24 01:45 Pantoprazole Sodium 40 mg DAILY IV 10/06/24 10:00 Exam Vital Signs Vital Signs Date Time Temp Pulse Resp B/P (MAP) Pulse Ox O2 Delivery O2 Flow Rate FiO2 10/06/24 00:01 98.3 85 14 120/60 (80) 96 98.3 General Appearance: Alert, Oriented X3, Cooperative, No acute distress HEENT: Atraumatic, PERRLA, EOMI, Mucous membr. moist/pink Respiratory: Clear to auscultation, Normal air movement Cardiovascular: Regular rate, Normal S1, Normal S2, No murmurs Abdominal: Normal bowel sounds, Soft, No hepatospenomegaly, No masses, Other (Reports tenderness) Extremities: No clubbing, No cyanosis, No edema, Normal pulses, No tenderness/swelling Skin: No rashes, No breakdown, No significant lesion Neuro: Normal gait, Normal speech, Strength at 5/5 X4 ext, Normal tone, Sensa tion intact, Cranial nerves 3-12 NL, Reflexes 2+ Psych/Mental Status: Mental status NL, Mood NL Labs/Xrays Labs Test 10/06/24 01:05 10/05/24 22:25 10/05/24 22:01 Range/Units Troponin I High Sensitivity 7 </=34 ng/L White Blood Count 9.3 4.4-10.8 10^3/uL Red Blood Count 5.68 H 4.0-5.20 10^6/uL Hemoglobin 16.0 12.2-16.2 g/dL Hematocrit 47.1 H 36.0-46.0 % Mean Corpuscular Volume 82.9 80.0-100.0 fL Mean Corpuscular Hemoglobin 28.1 28.0-32.0 pg Mean Corpuscular Hemoglobin Concent 33.9 32.0-36.0 g/dL Red Cell Distribution Width 14.1 11.8-14.3 % Platelet Count 258 140-450 10^3/uL Mean Platelet Volume 8.1 6.9-10.8 fL Neutrophils (%) (Auto) 69.7 37.0-80.0 % Lymphocytes (%) (Auto) 21.0 10.0-50.0 % Monocytes (%) (Auto) 8.4 0.0-12.0 % Eosinophils (%) (Auto) 0.5 0.0-7.0 % Basophils (%) (Auto) 0.4 0.0-2.0 % Neutrophils # (Auto) 6.5 1.6-8.6 10 ^3/uL Lymphocytes # (Auto) 1.9 0.4-5.4 10 ^3/uL Monocytes # (Auto) 0.8 0-1.3 10 ^3/uL Eosinophils # (Auto) 0 0-0.8 10 ^3/uL Basophils # (Auto) 0 0-0.2 10 ^3/uL Nucleated Red Blood Cells 0.1 % Sodium Level 132 L 136-145 mmol/L Potassium Level 3.6 3.5-5.1 mmol/L Chloride Level 96 L 98-107 mmol/L Carbon Dioxide Level 28 20-31 mmol/L Anion Gap 8 5-15 Blood Urea Nitrogen 13 9-23 mg/dL Creatinine 0.85 0.550-1.02 mg/dL Glomerular Filtration Rate Calc 78 >90 mL/min BUN/Creatinine Ratio 15.3 10.0-20.0 Serum Glucose 127 H 74-106 mg/dL Calcium Level 9.6 8.7-10.4 mg/dL Total Bilirubin 1.7 H 0.2-1.0 mg/dL Aspartate Amino Transferase (AST) 20 13-40 U/L Alanine Aminotransferase (ALT) 19 7-40 U/L Alkaline Phosphatase 102 46-116 U/L Total Protein 7.8 5.7-8.2 g/dL Albumin 4.7 3.2-4.8 g/dL Lipase 39 12-53 U/L Urine Color Yellow Yellow Urine Clarity Clear Clear Urine pH 6.5 5.0-9.0 Urine Specific [place] 1.026 1.001-1.035 Urine Protein Trace H Negative Urine Ketones 1+ H Negative Urine Blood Trace H Negative /uL Urine Nitrite Negative Negative Urine Bilirubin Negative Negative Urine Urobilinogen Normal Negative mg/dL Urine Leukocyte Esterase Trace Negative /uL Urine RBC 5 0 - 4 /hpf Urine Microscopic WBC 5 0-5 /HPF Urine Squamous Epithelial Cells Few <5 /hpf Urine Bacteria None seen None Seen /hpf Urine Mucus Few None Seen Urine Glucose Normal Normal mg/dL PATIENT: MARTÍN DOBBS ACCT: [id number] UNIT: [id number] : 1960 LOC: ER ROOM / BED: / AGE / SEX: 63 / F ADM STATUS: REG ER SERVICE 1904 ORDERING PHYSICIAN: LIBRADO MARK MD PROCEDURE(s): ABPL - CT AB PEL WO CON-NO ORAL OR IV REASON: epig and luq pain ORDER NUMBER(s): [id number], ACCESSION NUMBER(s): [id number] CLINICAL HISTORY: epig and luq pain TECHNIQUE: CT of the abdomen and pelvis was performed without intravenous contrast. This exam was performed according to our departmental dose optimization program. Up-to-date CT equipment and radiation dose reduction techniques are utilized as appropriate. CTDI: 17.33 DLP: 1043.08 WID: COMPARISON: None FINDINGS: Lower Thorax: Unremarkable. Liver and Biliary system: Normal-sized liver. tiny hypodensities in the right lobe of the liver not optimally evaluated without contrast. Gallbladder surgically absent. No biliary ductal dilatation. Spleen: Unremarkable. Adrenal Glands and Kidneys: Unremarkable. Pancreas and Retroperitoneum: Unremarkable. Aorta and Major Vessels: Aortoiliac vessels are normal in caliber with mild calcified atherosclerotic plaque. Bowel, Mesentery and Peritoneal space: Normal caliber small and large bowel. There is mild colonic diverticulosis. Normal appendix. There is no free air or fluid collection. Pelvis: Unremarkable. Abdominal wall and Osseous Structures: Small fat containing umbilical hernia. Mild multilevel lower thoracic and lumbar spondylosis. No destructive osseous lesion. IMPRESSION: No noncontrast evidence of acute abnormality. Mild distal colonic diverticulosis. Assessment/Plan Assessment/Plan Abdominal pain Hyponatremia UTI (urinary tract infection) Plan 1. Admit to med surge unit 2. Breathing treatment 3. Pain control management 4. IV antibiotic management 5. Management of fluids and electrolytes 6. Consultation for hospitalist 7. Diagnostic test abdomen/pelvis CT 8. DVT prophylaxis on SCDs 9. Repeat labs CBC, CMP in a.m. 10. Continue with current medical management 11. Treatment plan discussed with patient and RN. Patient verbalized understanding. Plan discussed with: Patient, Other (RN) My Orders Orders - LARA DIGGS DNP Procedure Category Date Status Time Complete Blood Count LAB 10/06/24 Logged 04:00 Comprehensive LAB 10/06/24 Logged Metabolic Panel 04:00 Allergies ZARINA 10/06/24 In Process 01:40 Code Status CODE 10/06/24 Transmitted 01:40 Sodium Chloride 0.9% PHA 10/06/24 In Process 01:45 Oxygen Per Hour RT 10/06/24 Transmitted 01:40 Hydrocodone-Acet PHA 10/06/24 In Process 5/325mg Tab (Randolph 01:45 Ondansetron Hcl PHA 10/06/24 In Process (Zofran) 01:45 Complete Blood Count LAB 10/07/24 Verified 04:00 Comprehensive LAB 10/07/24 Verified Metabolic Panel 04:00 Condition: Serious ZARINA 10/06/24 In Process 01:40 Acetaminophen Tablet PHA 10/06/24 In Process (Tylenol Tablet) 01:45 Clear Liq Diet DIET 10/06/24 Transmitted Breakfast Bedrest With Bathroom ZARINA 10/06/24 In Process Privileg 01:40 Morphine Sulfate PHA 10/06/24 In Process Injection 01:45 Sequential ZARINA 10/06/24 In Process Compression Device Pantoprazole PHA 10/06/24 In Process (Protonix) 10:00 Ceftriaxone 1gm/50ml PHA 10/07/24 In Process D5w (Rocephin) 02:00 Problem List: (1) Abdominal pain (2) Hyponatremia (3) UTI (urinary tract infection) Date of Service: Oct 06, 2024 Billing Provider: LARA DIGGS DNP Common Visit Codes: [id number] INP/OBS CARE (HIGH) LARA DIGGS DNP Oct 06, 2024 02:27
[2024-10-06] MEDS ORDERED: NITROGLYCERIN 0.4 MG SL TAB SL PRN (02:30)
[2024-10-06] MEDS ORDERED: MORPHINE SULFATE INJ 2 MG/ml SYRG IV PRN (02:30)
[2024-10-06] MEDS: ONDANSETRON HCL 4 MG/2 ML VIAL IV ONE (02:52)
[2024-10-06] MEDS: PANTOPRAZOLE 40 MG/10 ML VIAL INJ IV ONE (02:52)
[2024-10-06] MEDS: cefTRIAXone 1GM/50ML D5W 50 ML IV ONE (02:53)
[2024-10-06] MEDS: MORPHINE SULFATE 4 MG/ML SYR/VIAL IV ONE (02:53)
[2024-10-06] MEDS: SODIUM CHLORIDE 0.9% 1,000 ML IV ONE (02:53)
[2024-10-06] MEDS: SODIUM CHLORIDE 0.9% 1,000 ML IV SCH (04:37)
[2024-10-06 06:54] LABS: Hematocrit 44.7 % (36.0-46.0); Hemoglobin 15.2 g/dL (12.2-16.2); Mean Corpuscular Hemoglobin 28.2 pg (28.0-32.0); Mean Corpuscular Volume 83.1 fL (80.0-100.0); Nucleated Red Blood Cells % 0.1 %
[2024-10-06] MEDS: MORPHINE SULFATE INJ 2 MG/ml SYRG IV PRN (07:00)
[2024-10-06 07:04] LABS: Alanine Aminotransferase 16 U/L (7-40); Alkaline Phosphatase 90 U/L (46-116); Anion Gap 9 (5-15); BUN/Creatinine Ratio 19.2 (10.0-20.0); Blood Urea Nitrogen 14 mg/dL (9-23); Carbon Dioxide 26 mmol/L (20-31); Chloride 99 mmol/L (98-107); Total Protein 6.7 g/dL (5.7-8.2)
[2024-10-06 07:05] LABS: Albumin 4.1 g/dL (3.2-4.8)
[2024-10-06 07:09] LABS: Bilirubin, Total 1.3 mg/dL (0.2-1.0); Calcium 8.7 mg/dL (8.7-10.4); Glucose 122 mg/dL (74-106); Potassium 3.4 mmol/L (3.5-5.1); Sodium 134 mmol/L (136-145)
[2024-10-06] MEDS: PANTOPRAZOLE 40 MG/10 ML VIAL INJ IV SCH (08:21)
[2024-10-06] MEDS ORDERED: TRAM-626 PO ×2 (08:29)
[2024-10-06] MEDS ORDERED: ZOFR4T PO ×2 (08:29)
[2024-10-06 10:37] LABS: Hepatitis B Surface Antigen Negative (Negative); Hepatitis C Antibody Negative (Negative)
[2024-10-06] MEDS: HYDROcodone-ACET 5/325MG TAB PO PRN (15:27)
[2024-10-06] MEDS: POTASSIUM EFFERVESENT TAB 25 MEQ PO ONE (16:21)
--- NOTE | 2024-10-06 16:27 | DVHPN2 ---
Subjective 63-year-old female who is being admitted for abdominal pain nausea and vomiting diarrhea. CT scan abdomen and pelvis shows no evidence of acute pathology. Patient is still complaining of diarrhea. Reviewed: Care Plan Changes from previous H/P or p: No Changes Eyes: No Pain, No Vision change, No Conjunctivae inflammation, No Eyelid inflammation, No Other, No Redness ENT: No Ear pain, No Ear discharge, No Nose pain, No Nose discharge, No Nose congestion, No Mouth pain, No Mouth swelling, No Throat pain, No Throat swelling, No Other Cardiovascular: No Chest Pain, No Palpitations, No Orthopnea, No Paroxysmal Noc. Dyspnea, No Edema, No Lt Headedness, No Other Respiratory: No Cough, No Dry, No Shortness of breath, No SOB with excertion, No Wheezing, No Hemoptysis, No Pleuritic Pain, No Sputum, No Other Gastrointestinal: Nausea, Vomiting, Abdominal Pain; No Diarrhea; Constipation; No Melena, No Hematochezia, No Other Genitourinary: No Dysuria, No Frequency, No Incontinence, No Hematuria, No Retention, No Other Musculoskeletal: No other, No neck pain, No shoulder pain, No arm pain; back pain; No hand pain, No leg pain, No foot pain Skin: No Rash, No Lesions, No Jaundice, No Bruising, No Other Objective Vitals Vital Signs Date Time Temp Pulse Resp B/P (MAP) Pulse Ox O2 Delivery O2 Flow Rate FiO2 10/06/24 13:00 97.9 86 12 107/83 (91) 93 97.9 10/06/24 08:00 Room Air* 0 21 Intake/Output Intake and Output 10/06/24 07:00 Intake Total 1050 ml Balance 1050 ml Intake Oral 100 ml IV Total 950 ml Exam HEENT pupils are reactive Neck is supple CV is S1-S2 regular rate and rhythm Respiratory diminished breath sounds bases GI positive bowel sound Extremity no edema LOGISTICIAN no motor deficit Medications Current Medications Medications Dose Ordered Sig/Vinh Route Start Time Stop Time Status Last Admin Dose Admin Ceftriaxone Sodium 50 ml @ 100 mls/hr DAILY@09 IV 10/07/24 02:00 Sodium Chloride 1,000 ml @ 60 mls/hr [id number] IV 10/06/24 01:45 10/06/24 04:37 60 MLS/HR Acetaminophen/ Hydrocodone Bitart 1 tab Q4HP PRN PO 10/06/24 01:45 10/06/24 15:27 1 TAB Ondansetron HCl 4 mg Q4HP PRN IV 10/06/24 01:45 Acetaminophen 650 mg Q6HP PRN PO 10/06/24 01:45 Morphine Sulfate 2 mg Q4HPRN PRN IV 10/06/24 01:45 10/06/24 07:00 2 MG Pantoprazole Sodium 40 mg DAILY IV 10/06/24 10:00 10/06/24 08:21 40 MG Nitroglycerin 0.4 mg Q5MINP PRN SL 10/06/24 02:30 Morphine Sulfate 2 mg Q30M PRN IV 10/06/24 02:30 Laboratory Results Laboratory Tests 10/06/24 06:12 Chemistry Test 10/05/24 22:25 10/06/24 06:12 Albumin 4.7 g/dL (3.2-4.8) 4.1 g/dL (3.2-4.8) Calcium Level 9.6 mg/dL (8.7-10.4) 8.7 mg/dL (8.7-10.4) Total Protein 7.8 g/dL (5.7-8.2) 6.7 g/dL (5.7-8.2) Lipid panel Test 10/05/24: Lipase 39 U/L (12-53) LFT Test 10/05/24 22:25 10/06/24 06:12 Alanine Aminotransferase (ALT) 19 U/L (7-40) 16 U/L (7-40) Alkaline Phosphatase 102 U/L (46-116) 90 U/L (46-116) Aspartate Amino Transferase (AST) 20 U/L (13-40) 17 U/L (13-40) Total Bilirubin 1.7 mg/dL (0.2-1.0) H 1.3 mg/dL (0.2-1.0) H Urinalysis Test 10/05/24 22:01 Urine Color Yellow (Yellow) Urine Clarity Clear (Clear) Urine pH 6.5 (5.0-9.0) Urine Specific [place] 1.026 (1.001-1.035) Urine Protein Trace (Negative) H Urine Ketones 1+ (Negative) H Urine Blood Trace /uL (Negative) H Urine Nitrite Negative (Negative) Urine Bilirubin Negative (Negative) Urine Urobilinogen Normal mg/dL (Negative) Urine Leukocyte Esterase Trace /uL (Negative) Urine RBC 5 /hpf (0 - 4) Urine Microscopic WBC 5 /HPF (0-5) Urine Squamous Epithelial Cells Few /hpf (<5) Urine Bacteria None seen /hpf (None Seen) Urine Mucus Few (None Seen) Urine Glucose Normal mg/dL (Normal) Assessment/Plan Assessment/Plan 63-year-old female who came to the hospital with the abdominal pain nausea and vomiting diarrhea for last five days. Patient was seen by PCP as an outpatient was given some antibiotics and pain killers. 1. Abdominal pain nausea and vomiting 2. Diarrhea rule out C diff 3. Hyponatremia 4. UTI -IV fluids IV antibiotics follow up stool for C diff if diarrhea is still active otherwise patient's can be discharged in next 24 hours. Plan discussed with: Patient My Orders Orders - JONATHAN MIMS MD Procedure Category Date Status Time Basic Metabolic Panel LAB 10/07/24 Verified 04:00 Date of Service: Oct 06, 2024 Billing Provider: JONATHAN MIMS MD Common Visit Codes: [id number] INP/OBS CARE(MOD) JONATHAN MIMS MD Oct 06, 2024 16:27
[2024-10-07 01:00] VITALS: BP_SYST 93; BP_SYST 97; BP_DIAS 57; PULSE 69; PULSE 72; RESP 16; RESP 18; TEMP 97.8; O2SAT 96
[2024-10-07] MEDS: cefTRIAXone 1GM/50ML D5W 50 ML IV SCH (01:34)
[2024-10-07 05:00] VITALS: BP 103/60; PULSE 84; RESP 18; TEMP 97.9; O2SAT 96
[2024-10-07 07:26] LABS: Hematocrit 42.4 % (36.0-46.0); Hemoglobin 14.3 g/dL (12.2-16.2); Mean Corpuscular Hemoglobin 28.1 pg (28.0-32.0); Mean Corpuscular Volume 83.2 fL (80.0-100.0); Nucleated Red Blood Cells % 0.1 %
[2024-10-07 07:40] LABS: Alanine Aminotransferase 16 U/L (7-40); Alkaline Phosphatase 81 U/L (46-116); Anion Gap 9 (5-15); BUN/Creatinine Ratio 14.5 (10.0-20.0); Blood Urea Nitrogen 12 mg/dL (9-23); Calcium 9.0 mg/dL (8.7-10.4); Carbon Dioxide 26 mmol/L (20-31); Chloride 103 mmol/L (98-107); Glucose 98 mg/dL (74-106); Sodium 138 mmol/L (136-145)
[2024-10-07 07:41] LABS: Total Protein 5.9 g/dL (5.7-8.2)
[2024-10-07 07:42] LABS: Albumin 3.6 g/dL (3.2-4.8)
[2024-10-07 07:50] LABS: Bilirubin, Total 1.3 mg/dL (0.2-1.0); Potassium 3.3 mmol/L (3.5-5.1)
[2024-10-07 08:00] VITALS: PULSE 73; RESP 18
[2024-10-07 13:00] VITALS: BP 149/65; PULSE 70; RESP 16; TEMP 97.7; O2SAT 100
--- NOTE | 2024-10-07 16:55 | DVHPN2 ---
Subjective 63-year-old female who is being admitted for abdominal pain nausea and vomiting diarrhea. CT scan abdomen and pelvis shows no evidence of acute pathology. Patient is still complaining of diarrhea. Reviewed: Care Plan Changes from previous H/P or p: No Changes Eyes: No Pain, No Vision change, No Conjunctivae inflammation, No Eyelid inflammation, No Other, No Redness ENT: No Ear pain, No Ear discharge, No Nose pain, No Nose discharge, No Nose congestion, No Mouth pain, No Mouth swelling, No Throat pain, No Throat swelling, No Other Cardiovascular: No Chest Pain, No Palpitations, No Orthopnea, No Paroxysmal Noc. Dyspnea, No Edema, No Lt Headedness, No Other Respiratory: No Cough, No Dry, No Shortness of breath, No SOB with excertion, No Wheezing, No Hemoptysis, No Pleuritic Pain, No Sputum, No Other Gastrointestinal: Nausea, Vomiting, Abdominal Pain; No Diarrhea; Constipation; No Melena, No Hematochezia, No Other Genitourinary: No Dysuria, No Frequency, No Incontinence, No Hematuria, No Retention, No Other Musculoskeletal: No other, No neck pain, No shoulder pain, No arm pain; back pain; No hand pain, No leg pain, No foot pain Skin: No Rash, No Lesions, No Jaundice, No Bruising, No Other Objective Vitals Vital Signs Date Time Temp Pulse Resp B/P (MAP) Pulse Ox O2 Delivery O2 Flow Rate FiO2 10/07/24 08:00 73 18 Room Air* 0 21 10/07/24 06:56 100/58 10/07/24 05:00 97.9 96 97.9 Intake/Output Intake and Output 10/07/24 07:00 Intake Total 2150 ml Balance 2150 ml Intake Oral 2100 ml IV Total 50 ml # Voids 5 # Bowel Movements 1 Exam HEENT pupils are reactive Neck is supple CV is S1-S2 regular rate and rhythm Respiratory diminished breath sounds bases GI positive bowel sound Extremity no edema MANAGER OF DEVELOPMENT no motor deficit Medications Current Medications Medications Dose Ordered Sig/Vinh Route Start Time Stop Time Status Last Admin Dose Admin Ceftriaxone Sodium 50 ml @ 100 mls/hr DAILY@09 IV 10/07/24 02:00 10/07/24 09:08 100 MLS/HR Sodium Chloride 1,000 ml @ 60 mls/hr [id number] IV 10/06/24 01:45 10/07/24 10:50 60 MLS/HR Acetaminophen/ Hydrocodone Bitart 1 tab Q4HP PRN PO 10/06/24 01:45 10/07/24 12:31 1 TAB Ondansetron HCl 4 mg Q4HP PRN IV 10/06/24 01:45 Acetaminophen 650 mg Q6HP PRN PO 10/06/24 01:45 Morphine Sulfate 2 mg Q4HPRN PRN IV 10/06/24 01:45 10/07/24 06:26 2 MG Pantoprazole Sodium 40 mg DAILY IV 10/06/24 10:00 10/07/24 09:08 40 MG Nitroglycerin 0.4 mg Q5MINP PRN SL 10/06/24 02:30 Morphine Sulfate 2 mg Q30M PRN IV 10/06/24 02:30 Laboratory Results Laboratory Tests 10/07/24 06:01 Chemistry Test 10/07/24 06:01 Albumin 3.6 g/dL (3.2-4.8) Calcium Level 9.0 mg/dL (8.7-10.4) Total Protein 5.9 g/dL (5.7-8.2) LFT Test 10/07/24 06:01 Alanine Aminotransferase (ALT) 16 U/L (7-40) Alkaline Phosphatase 81 U/L (46-116) Aspartate Amino Transferase (AST) 17 U/L (13-40) Total Bilirubin 1.3 mg/dL (0.2-1.0) H Urinalysis Test 10/05/24 22:01 Urine Color Yellow (Yellow) Urine Clarity Clear (Clear) Urine pH 6.5 (5.0-9.0) Urine Specific [place] 1.026 (1.001-1.035) Urine Protein Trace (Negative) H Urine Ketones 1+ (Negative) H Urine Blood Trace /uL (Negative) H Urine Nitrite Negative (Negative) Urine Bilirubin Negative (Negative) Urine Urobilinogen Normal mg/dL (Negative) Urine Leukocyte Esterase Trace /uL (Negative) Urine RBC 5 /hpf (0 - 4) Urine Microscopic WBC 5 /HPF (0-5) Urine Squamous Epithelial Cells Few /hpf (<5) Urine Bacteria None seen /hpf (None Seen) Urine Mucus Few (None Seen) Urine Glucose Normal mg/dL (Normal) Assessment/Plan Assessment/Plan 63-year-old female who came to the hospital with the abdominal pain nausea and vomiting diarrhea for last five days. Patient was seen by PCP as an outpatient was given some antibiotics and pain killers. 1. Abdominal pain nausea and vomiting, resolved 2. Diarrhea rule out C diff 3. Hyponatremia 4. UTI -IV fluids IV antibiotics follow up stool for C diff if diarrhea is still active otherwise patient's can be discharged in next 24 hours. Plan discussed with: Patient My Orders Orders - JONATHAN MIMS MD Procedure Category Date Status Time Cardiac DIET 10/07/24 Transmitted Diet-2gna,Lofat,Lochol Dinner Date of Service: Oct 07, 2024 Billing Provider: JONATHAN MIMS MD Common Visit Codes: [id number] INP/OBS CARE(MOD) JONATHAN MIMS MD Oct 07, 2024 16:55
[2024-10-07 17:00] VITALS: BP 100/53; PULSE 64; RESP 18; TEMP 98; O2SAT 96
[2024-10-07 21:00] VITALS: BP 101/36; PULSE 67; RESP 18; TEMP 98; O2SAT 98
[2024-10-08 01:00] VITALS: BP 102/61; PULSE 69; RESP 17; TEMP 98.4; O2SAT 97
[2024-10-08 05:00] VITALS: BP 119/58; PULSE 63; RESP 18; TEMP 98.2; O2SAT 96
[2024-10-08 09:00] VITALS: BP 97/52; PULSE 77; RESP 20; TEMP 98; O2SAT 97
[2024-10-08 13:00] VITALS: BP 94/51; PULSE 73; RESP 16; TEMP 98.1; O2SAT 98
--- NOTE | 2024-10-08 17:31 | DVHDS2 ---
Discharge Summary Date of Admission Oct 06, 2024 at 02:25 Date of Discharge: Oct 08, 2024 Labs/Diagnostic Data: Laboratory Results Test 10/07/24 06:01 10/06/24 06:12 10/06/24 01:05 10/05/24 22:25 White Blood Count 6.9 10^3/uL (4.4-10.8) Red Blood Count 5.10 10^6/uL (4.0-5.20) Hemoglobin 14.3 g/dL (12.2-16.2) Hematocrit 42.4 % (36.0-46.0) Mean Corpuscular Volume 83.2 fL (80.0-100.0) Mean Corpuscular Hemoglobin 28.1 pg (28.0-32.0) Mean Corpuscular Hemoglobin Concent 33.8 g/dL (32.0-36.0) Red Cell Distribution Width 13.9 % (11.8-14.3) Platelet Count 191 10^3/uL (140-450) Mean Platelet Volume 8.7 fL (6.9-10.8) Neutrophils (%) (Auto) 52.0 % (37.0-80.0) Lymphocytes (%) (Auto) 36.3 % (10.0-50.0) Monocytes (%) (Auto) 6.3 % (0.0-12.0) Eosinophils (%) (Auto) 4.9 % (0.0-7.0) Basophils (%) (Auto) 0.5 % (0.0-2.0) Neutrophils # (Auto) 3.6 10 ^3/uL (1.6-8.6) Lymphocytes # (Auto) 2.5 10 ^3/uL (0.4-5.4) Monocytes # (Auto) 0.4 10 ^3/uL (0-1.3) Eosinophils # (Auto) 0.3 10 ^3/uL (0-0.8) Basophils # (Auto) 0 10 ^3/uL (0-0.2) Nucleated Red Blood Cells 0.1 % Sodium Level 138 mmol/L (136-145) Potassium Level 3.3 mmol/L (3.5-5.1) Chloride Level 103 mmol/L (98-107) Carbon Dioxide Level 26 mmol/L (20-31) Anion Gap 9 (5-15) Blood Urea Nitrogen 12 mg/dL (9-23) Creatinine 0.83 mg/dL (0.550-1.02) Glomerular Filtration Rate Calc 80 mL/min (>90) BUN/Creatinine Ratio 14.5 (10.0-20.0) Serum Glucose 98 mg/dL (74-106) Calcium Level 9.0 mg/dL (8.7-10.4) Total Bilirubin 1.3 mg/dL (0.2-1.0) Aspartate Amino Transferase (AST) 17 U/L (13-40) Alanine Aminotransferase (ALT) 16 U/L (7-40) Alkaline Phosphatase 81 U/L (46-116) Total Protein 5.9 g/dL (5.7-8.2) Albumin 3.6 g/dL (3.2-4.8) Hepatitis B Surface Antigen Negative (Negative) Hepatitis C Antibody Negative (Negative) Troponin I High Sensitivity 7 ng/L (</=34) Lipase 39 U/L (12-53) Test 10/05/24 22:01 Urine Color Yellow (Yellow) Urine Clarity Clear (Clear) Urine pH 6.5 (5.0-9.0) Urine Specific [place] 1.026 (1.001-1.035) Urine Protein Trace (Negative) Urine Ketones 1+ (Negative) Urine Blood Trace /uL (Negative) Urine Nitrite Negative (Negative) Urine Bilirubin Negative (Negative) Urine Urobilinogen Normal mg/dL (Negative) Urine Leukocyte Esterase Trace /uL (Negative) Urine RBC 5 /hpf (0 - 4) Urine Microscopic WBC 5 /HPF (0-5) Urine Squamous Epithelial Cells Few /hpf (<5) Urine Bacteria None seen /hpf (None Seen) Urine Mucus Few (None Seen) Urine Glucose Normal mg/dL (Normal) Other Laboratory Tests 10/07/24 06:01 Brief Hx & Hospital Course: 63-year-old female who came to the hospital with the abdominal pain nausea and vomiting diarrhea for last five days. Patient was seen by PCP as an outpatient was given some antibiotics and pain killers. Patient's presented to the hospital with the abdominal pain nausea and vomiting again. Patient is also mildly hyponatremic. Patient was found to have mild UTI which was treated with the IV antibiotics. Patient is currently abdominal pain free denies any burning urination or any concern. Patient is being discharged under stable condition. Please follow up with the PCP in 1-2 weeks please return to ER if abdominal pain returns. Condition at Discharge: Stable Final Diagnosis/Problems List 63-year-old female who came to the hospital with the abdominal pain nausea and vomiting diarrhea for last five days. Patient was seen by PCP as an outpatient was given some antibiotics and pain killers. 1. Abdominal pain nausea and vomiting, resolved 2. Hyponatremia 3. UTI Discharge Disposition: Home SNF Discharge Will this Physician continue t: No Discharge Instruct/Medications Diet: Cardiac 2g Na,low cholest Activity: No Restrictions, As Tolerated Follow Up/Referral: Follow up with the PCP in 1-2 weeks Medications: Resume home medications Scheduled PRN Ondansetron Odt 4MG Tab (Zofran Po), 8 MG PO Q8HP PRN for NAUSEA / VOMITING, (Reported) Tramadol HCl (Tramadol HCl), 50 MG PO Q8HP PRN for PAIN SCALE 1 THRU 6, (Reported) Discontinued Medications Semaglutide (Wegovy), 0.5 MG SC QWEEKLY, (Reported) Discharge Statement: "Patient was advised to return to the ER or call 911 if any headaches, dizziness, shortness of breath, chest pain, abdominal pain, bleeding, fevers, or worsening of medical condition. Patient was counseled about treatment plan, medications, possible side effects, patientverbalized understanding. All questions were answered to the best of my ability. This discharge took greater then 30 minutes in planning, reviewing documentation, counseling the patient, and discussing with other team members." ASSESSMENT ASSESSMENT Assessment UTI Date of Service: Oct 08, 2024 Billing Provider: JONATHAN MIMS MD Common Visit Codes: [id number] DISCH DAY >30min JONATHAN MIMS MD Oct 08, 2024 17:31
== END 2024-10-08 16:00 | disposition home or self-care (01) | DRG 243 ==
LOC: ER 21:27 → OVERFLOW 10-06 02:25 → WEST WING 10-06 03:38
PROVIDERS: ADMIT Nurse Practitioner Family; ATTEND Nurse Practitioner Family
DX: K21.9 Gastro-esophageal reflux disease without esophagitis (principal); E87.1 Hypo-osmolality and hyponatremia; N30.00 Acute cystitis without hematuria; K59.00 Constipation, unspecified; K57.30 Diverticulosis of large intestine without perforation or abscess without bleeding; Z90.49 Acquired absence of other specified parts of digestive tract; Z79.899 Other long term (current) drug therapy
CPT/HCPCS: 36415; 74176; 80053; 81001; 83690; 84484; 85025; 86803; 87340; 96361; 96374; 96375; G0378; J2405; J2470

== ENCOUNTER 2024-10-18 13:19 | Outpatient (CLI) | payer MEDICAID ==
[~2024-10-18 13:19] MED LIST changes: -SEMA0.5I SC; +TRAM-626 PO; +ZOFR4T PO
[2024-10-18] MEDS ORDERED: READI-CAT 2 (BARIUM SULF)(VANILLA SMOOTHIE) 450ML ONE (13:31)
[2024-10-18] MEDS ORDERED: IOHEXOL 350 MG/ML 100ML IJ ONE (13:32)
[2024-10-18 14:15] VITALS: BP 126/76; PULSE 68; RESP 16
[2024-10-18 14:45] VITALS: BP 139/63; PULSE 68; RESP 16
--- NOTE | 2024-10-18 15:20 | DVH ---
Indication: ABD PAIN Technique: CT axial images of the abdomen and pelvis are obtained with 568.55 x 514.82 intravenous co ntrast. Coronal and sagittal reformats were obtained. Radiation Dose Information: CTDI volume is 16.3 mGy. Dose-length product is 836.35 mGy*cm Comparison: 10/06/2024 FINDINGS: The lung bases demonstrate no pleural effusion. Adrenal glands, spleen and pancreas unremarkable. Cholecystectomy. 6 mm right hepatic lobe hypodensi ty, too small to characterize statistically likely represent cysts. Hepatic steatosis. Kidneys demonstrate no hydronephrosis. Stomach is partially distended. Small bowel loops are normal in caliber. Colonic diverticular disease. Moderate volume stool in the colon. Normal appendix. Abdominal aorta normal in caliber. Bladder partially distended. No free pelvic fluid. No inguinal lym phadenopathy. Avht-fl-vhqkcsio lumbar degenerative disc disease most pronounced at L5-S1. IMPRESSION: No CT evidence for acute abnormality of the abdomen / pelvis. Cholecystectomy. Hepatic steatosis. Colonic diverticular disease. Other findings as described.
== END 2024-10-18 17:00 | disposition home or self-care (01) ==
LOC: Rad HDHVI 13:19
PROVIDERS: ATTEND Internal Medicine Cardiovascular Disease
DX: K57.30 Diverticulosis of large intestine without perforation or abscess without bleeding (principal); K76.0 Fatty (change of) liver, not elsewhere classified; K31.89 Other diseases of stomach and duodenum; N32.89 Other specified disorders of bladder; M51.379 Other intervertebral disc degeneration, lumbosacral region without mention of lumbar back pain or lower extremity pain; R10.9 Unspecified abdominal pain; Z90.49 Acquired absence of other specified parts of digestive tract
CPT/HCPCS: 74177; G0463; Q9967